=== PATIENT | male | born 1995 | race Caucasian/White ===

== ENCOUNTER 2019-08-10 19:24 | Emergency (ER) | payer MEDICAID ==
[~2019-08-10] VITALS: Ht 177.8 cm; Wt 81.6 kg
[2019-08-10 19:53] VITALS: Ht 177.8 cm; Wt 81.6 kg
[2019-08-10 21:39] VITALS: BP 133/76
== END 2019-08-10 21:39 | disposition home or self-care (01) ==
LOC: ED 19:24
DX: F41.9 Anxiety disorder, unspecified (principal); E10.8 Type 1 diabetes mellitus with unspecified complications; K90.0 Celiac disease; Z88.2 Allergy status to sulfonamides
CPT/HCPCS: 82962; Q0092